=== PATIENT | male | born 1995 | race Caucasian/White ===

== ENCOUNTER 2024-10-20 11:30 | Emergency (ER) | payer OTHER ==
[~2024-10-20] VITALS: Ht 180.3 cm; Wt 92.7 kg
[2024-10-20] MEDS: predniSONE 20 MG TAB PO ONE (13:26)
[2024-10-20] MEDS: diphenhydrAMINE 50 MG/ML VIAL IV STA (13:26)
[2024-10-20] MEDS: KETOROLAC 30 MG/ML 1 ML VIAL IV ONE (13:26)
[2024-10-20] MEDS: FAMOTIDINE 20 MG/2 ML VIAL IVP ONE (13:27)
[2024-10-20 13:28] LABS: BASO # 0.0 10^3/uL (0.0-0.2); BASO % 0.2 % (0.0-1.0); EOS # 0.1 10^3/uL (0.0-0.5); EOS % 0.6 % (0.0-3.0); LYMPH # 1.0 10^3/uL (1.5-5.0); LYMPH % 5.1 % (24.0-44.0); MONO # 0.7 10^3/uL (0.0-0.8); MONO % 3.6 % (2.0-8.0); NEUTROPHILS # 17.8 10^3/uL (1.5-8.5); NEUTROPHILS % 90.0 % (36.0-66.0); PLATELET COUNT, AUTOMATED 295 10^3/uL (150-450)
[2024-10-20 13:59] LABS: ALT/SGPT 56.0 U/L (7.0-40); AST/SGOT 88.0 U/L (<34)
[2024-10-20] MEDS ORDERED: ISOVUE-370 76% 100 ML VIAL As Ordered ONE (14:04)
[2024-10-20 14:31] VITALS: TEMP 97
[2024-10-20 15:00] VITALS: BP 131/71; O2SAT 98
== END 2024-10-20 15:17 | disposition home or self-care (01) ==
LOC: M ED 11:30
DX: L50.9 Urticaria, unspecified (principal); R19.7 Diarrhea, unspecified; R11.10 Vomiting, unspecified
CPT/HCPCS: 74177; 80047; 80076; 83690; 85025; 96374; 96375; 99284; J1200; J1308; J1885; J7512; Q9967